=== PATIENT | female | born 1950 | race Caucasian/White ===

== ENCOUNTER 2018-08-22 08:36 | Inpatient (IN) | payer MEDICARE ==
[~2018-08-22] VITALS: Ht 170.2 cm; Wt 61.2 kg
--- NOTE | ~2018-08-22 | HP ---
PATIENT: NIKIA FLANNERY MEDICAL RECORD: [id number] ACCOUNT: [id number] LOCATION:D.MS [place] : 48 ADMISSION DATE: 08/23/18 PCP: JERMAINE BEDOLLA MD HISTORY AND PHYSICAL EXAMINATION HISTORY OF PRESENT ILLNESS: The patient took a Cologuard test, which was positive. She was found to have 2 polyps, one was a flat polyp across from the ileocecal valve and the other one was on the ileocecal valve. 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 She is here for colonoscopy and polypectomy, perhaps utilizing the argon plasma field sales manager or endoscopic mucosal resection. SOCIAL HISTORY: Nonsmoker. HOME MEDICATIONS: None. ALLERGIES: CODEINE, WHICH CAUSES NAUSEA AND VOMITING. PAST MEDICAL AND SURGICAL HISTORY: Colon polyps. History D&C. History of colonoscopies. PHYSICAL EXAMINATION: GENERAL: The patient does not appear acutely ill. She does not appear chronically ill. VITAL SIGNS: Reviewed. EARS: External ears appear normal. EYES: Extraocular movements are intact. NECK: Trachea is midline. CHEST: No intercostal retractions. PULMONARY: Nonlabored. IMPRESSION: History of two colon polyps, both in the right colon. PLAN: Polypectomies as described above. TRANSINT:[id number] Voice Confirmation ID: [id number] DOCUMENT ID: [id number] JERMAINE BEDOLLA MD CC: DAYTON MACK and PATITO LEMUS DO [id number] DICTATION DATE: 08/22/18 1214 TICKER INSTALLER: 08/22/18 1257 ADM IN [facility] [address] [place] [address]
[2018-08-22 09:15] LABS: HEMATOCRIT 40.5 % (36.0-48.0); HEMOGLOBIN 13.2 g/dL (12-16); MCH 29.9 pg (26.0-34.0); MCHC 32.6 g/dL (31.0-37.0); MCV 91.8 fL (80.0-100.0); MEAN PLATELET VOLUME 9.8 fL (7.4-10.4); RBC 4.41 10x6/uL (4.00-5.40); RDW 13.4 % (11.5-14.5); WBC 4.6 10x3/uL (4.8-10.8)
[2018-08-22 09:26] VITALS: BMI 21.9
--- NOTE | 2018-08-22 13:23 | NUR ---
X RAY AT BEDSIDE AT THIS TIME.
--- NOTE | 2018-08-22 13:55 | NUR ---
IV REMOVED AND POST OP INSTRUCTIONS GIVEN. RESULTS OF XRAY IN AND NO FREE AIR. PT ATE SMALL AMT. TRYING TO PASS GAS
--- NOTE | 2018-08-22 16:09 | NUR ---
1345 XRAY DONE AND RESULTS NOTED. PT NOTED WITH A TRAY AT BEDSIDE, SMALL AMT TOLERATED. VS STABLE. PT UNABLE TO RELEASE GAS. ON LEFT SIDE WITH KNEES UP TO CHEST. NO NAUSEA.
--- NOTE | 2018-08-22 16:10 | NUR ---
1430 CONTINUED DOING WELL, IV REMOVED AND INSTRUCTIONS GIVEN.
--- NOTE | 2018-08-22 16:11 | NUR ---
1500 PT HAVING PAIN ACCROSS LOWER ABDOMEN. ENCOURAGED MOVING SIDE TO SIDE. SOME NAUSEA DR BEDOLLA IN GI AND NOTIFIED. ORDERS GIVEN FOR GAS X AND PO ZOFRAN. 1530 DR BEDOLLA CALLED PT CONTINUES WITH NAUSEA AND PAIN MODERATE AMT. WAITING FOR RETURN CALL. 1600 DR BEDOLLA CALLED ABOUT PAIN IN ABD AND NAUSEA. ORDERS GIVEN FOR PO MEDS
--- NOTE | 2018-08-22 16:30 | NUR ---
1615 MEDICATED PER MD ORDERS. PT AWAKE AND ABLE TO DRINK FLUIDS. AT BEDSIDE. ABDOMEN SOFT NO PASSING OF GAS.
--- NOTE | 2018-08-22 17:17 | NUR ---
PT TALKING QUIETLY AND SOFTLY BUT STATED SHE IS IN SO MUCH PAIN IT IS HARD TO BREATH. TEMP 98.8 ABDOMEN SOFT BUT TENDER TO PALPATE.
--- NOTE | 2018-08-22 17:24 | NUR ---
PT STATED SHE PASSED GAS TWICE A LITTLE AROUND 1430 AND NON SINCE.
--- NOTE | 2018-08-22 17:42 | NUR ---
DR BEDOLLA CALLED ABOUT PTS PAIN AND NAUSEA. PAIN A 7 OUT OF 10 ACROSS LOWER PART OF ABDOMEN. PAIN SO GREAT PT STATED IT WAS HARD TO BREATH. PT CALM AT BEDSIDE, UNABLE TO PASS GAS. NAUSEA EASING SOME. ORDERS GIVEN AND NOTED
--- NOTE | 2018-08-22 18:37 | NUR ---
IV RESTARTED IN RIGHT FORARM. PATENT, DRESSING APPLIED. PT DRINKING CLEAR LIQUIDS. SMALL AMT. VS STABLE REPORT GIVEN TO NURSE FOR 2202 RICARDA NAYLOR
[2018-08-23] VITALS (10 sets, daily range): BP systolic 130–179; BP diastolic 53–73; Ht 170.2 cm; Wt 61.2 kg
--- NOTE | 2018-08-23 07:40 | NUR ---
PT LYING IN BED WITH EYES OPEN. NO ACUTE DISTRESS NOTED. REPORTS ABDOMINAL PAIN AT THIS TIME 07/30. IV TO RIGHT FOREARM WITH NS @ 125ML/HR INFUSING VIA PUMP, DILAUDID LABOR RELATIONS TEACHER INTACT AND UTILIZING. DENIES FURTHER NEEDS AT THIS TIME. CL WITHIN REACH. ENCOURAGED TO CALL WITH NEEDS. CONTINUE POC
--- NOTE | 2018-08-23 08:49 | NUR ---
SPOUSE TAKING HOME SILVER COLORED EARRINGS WITH CLEAR STONES AND SILVER COLORED RING WITH CLEAR STONES.
--- NOTE | 2018-08-23 11:10 | NUR ---
PT ADMINISTERED PRE-OP MEDICATIONS AND TAKEN TO PRE-OP FOR PROCEDURE VIA BED. NO ACUTE DISTRESS NOTED AT THIS TIME.
[2018-08-23 11:16] LABS: BASOPHILS 0 % (0-2); EOSINOPHILS 0.1 % (0-7); HEMATOCRIT 36.4 % (36.0-48.0); HEMOGLOBIN 11.8 g/dL (12-16); IMMATURE GRANULOCYTES 0.1 % (0-5); LYMPHOCYTES 20.2 % (15-50); MCH 29.5 pg (26.0-34.0); MCHC 32.4 g/dL (31.0-37.0); MEAN PLATELET VOLUME 9.3 fL (7.4-10.4); MONOCYTES 6.5 % (2-11); NEUTROPHILS 73.1 % (40-80); RDW 13.4 % (11.5-14.5)
[2018-08-23 11:26] LABS: ANION GAP 10.4 mmol/L (8-16); CALCIUM 8.5 mg/dL (8.5-10.1); CARBON DIOXIDE 26.9 mmol/L (21.0-32.0); POTASSIUM - SERUM 3.3 mmol/L (3.5-5.1)
[2018-08-23 11:34] LABS: PLATELET COUNT 130 10x3/uL (130-400)
--- NOTE | 2018-08-23 17:31 | OP ---
PATIENT NAME: NIKIA FLANNERY MEDICAL RECORD: [id number] :48 LOCATION:D.MS Terrell2203 ADMISSION DATE:08/23/18 SURGEON: JERMAINE BEDOLLA MD DATE OF OPERATION: 08/22/2018 PREOPERATIVE DIAGNOSIS: Flat polyp across from the ileocecal valve, 2.5 cm. POSTOPERATIVE DIAGNOSES: Flat polyp across from the ileocecal valve 2.5 cm. PROCEDURES: 1. Total colonoscopy to cecum. 2. Polypectomy utilizing endoscopic mucosal resection. 3. Submucosal epinephrine injection. 4. Argon plasma coagulation therapy to the polypoid base. 5. Placement of 3 endoscopic clips for hemostasis. SURGEON: Jermaine Bedolla MD HOSPITALITY ASSOCIATE: None. BLOOD LOSS: Minimal. ANESTHESIA: IV sedation. COMPLICATIONS: None. The risks, possible complications and alternatives to the procedure were explained to the patient. She elects to proceed. OPERATIVE COURSE: The patient was conveyed to the endoscopy suite electively on 08/22/2018. IV sedation was induced by the anesthesia staff. The patient was placed in the [place] position. A digital rectal examination was performed. A colonoscope was inserted through the anus. It was easily advanced to the cecum. The prep was adequate. The polyp across from the ileocecal valve was easily identifiable. I advanced a sclerotherapy needle. A submucosal injection of epinephrine was performed and there was a good lift to the polyp. I then advanced a sclerotherapy needle again and injected an entire vial of Eleview into the submucosal space allowing the polyp to lift up. Utilizing the endoscopic snare, I performed a piecemeal snare polypectomy of the polyp. This portion of the polyp were then sucked up into the polyp trap. There was a small amount of the residual polypoid tissue, which was ablated utilizing the argon plasma unclaimed property manager with the right colon setting in the forced mode. There was still a small amount of bleeding and this was controlled with a row of 3 endoscopic clips. Hemostasis was assured and the endoscope was then withdrawn under direct vision utilizing narrow band imaging. A retroflexed view was obtained in the rectum. I then unretroflexed the scope and removed it under direct vision. I plan to see the patient in my office in 2-3 weeks. I will plan for the patient's next colonoscopy to take place in 1 year. OPERATIVE REPORT [id number] NIKIA FLANNERY TRANSINT:[id number] Voice Confirmation ID: [id number] DOCUMENT ID: [id number] JERMAINE BEDOLLA MD at 1731 CC: DAYTON MACK and PATITO LEMUS DO [id number] DICTATION DATE: 08/22/18 1258 RAILROAD DISPATCHER: 08/22/18 1342 ADM IN [facility] [address] [place] [address]
[2018-08-24 01:32] VITALS: BP 138/80
--- NOTE | 2018-08-24 04:39 | NUR ---
REC'D AT [facility] OF SHIFT IN BED PARTIALLY ASLEEP.ABDOMINAL DRSG DRY AND INTACT.WITH BELKYS DRAIN AND STEVENSON CATH INTACT DRAINING STRAW YELLOW URINE
[2018-08-24 05:18] VITALS: BP 144/57
--- NOTE | 2018-08-24 05:28 | NUR ---
I AGREE WITH LOGISTICS TECH ASSESSMENT.
[2018-08-24 07:13] LABS: BASOPHILS 0 % (0-2); EOSINOPHILS 0 % (0-7); HEMATOCRIT 32.9 % (36.0-48.0); HEMOGLOBIN 10.7 g/dL (12-16); IMMATURE GRANULOCYTES 0.4 % (0-5); LYMPHOCYTES 10.6 % (15-50); MCH 29.3 pg (26.0-34.0); MCHC 32.5 g/dL (31.0-37.0); MCV 90.1 fL (80.0-100.0); MEAN PLATELET VOLUME 10.1 fL (7.4-10.4); MONOCYTES 6.3 % (2-11); NEUTROPHILS 82.7 % (40-80); PLATELET COUNT 128 10x3/uL (130-400); RBC 3.65 10x6/uL (4.00-5.40); RDW 13.4 % (11.5-14.5); WBC 7.7 10x3/uL (4.8-10.8)
--- NOTE | 2018-08-24 07:25 | NUR ---
PT RESTING IN BED WITH FAMILY AT BEDSIDE. RESP EVEN AND UNLABORED. REPORTS PAIN 4/10 AT THIS TIME, UTILIZING DILAUDID ENTRY LEVEL FINANCIAL ANALYST. IV TO RIGHT FOREARM WITH NS @ 100ML/HR INFUSING VIA PUMP. SITE WITHOUT REDNESS OR EDEMA. LAP SITES TO ABDOMEN, SITES WITHOUT DRAINAGE, NO REDNESS. BELKYS DRAIN INTACT TO MID LOWER ABDOMEN DRAINING SEROUS DRAINAGE. DENIES FURTHER NEEDS AT THIS TIME. CL WITHIN REACH. ENCOURAGED TO CALL WITH NEEDS. CONTINUE POC
[2018-08-24 07:42] LABS: ALBUMIN 2.4 g/dL (3.4-5.0); ALKALINE PHOSPHATASE 37 U/L (46-116); ALT (SGPT) 15 U/L (10-68); CALC OSMOLALITY 277 mosm/kg (275-300); CALCIUM 8.1 mg/dL (8.5-10.1); CARBON DIOXIDE 24.3 mmol/L (21.0-32.0); CHLORIDE - SERUM 106 mmol/L (98-107); GLUCOSE 115 mg/dL (74-106); MAGNESIUM - SERUM 1.7 mg/dL (1.8-2.4); PHOSPHOROUS 2.7 mg/dL (2.5-4.9); POTASSIUM - SERUM 3.6 mmol/L (3.5-5.1); PROTEIN - SERUM 5.7 g/dL (6.4-8.2); SODIUM 139 mmol/L (136-145); TROPONIN-I < 0.017 ng/mL (0.000-0.060); UREA NITROGEN 9 mg/dL (7-18); eGFR NON AFRICAN AMERICAN 88 mL/min (90-120)
[2018-08-24 07:45] LABS: CREATININE - SERUM 0.7 mg/dL (0.6-1.3)
[2018-08-24 08:45] VITALS: BP 138/62
--- NOTE | 2018-08-24 09:10 | CN ---
PATIENT NAME:TARA LUKE MEDICAL RECORD: [id number] : 48 LOCATION:D.MS Terrell2202 ADMIT DATE: 08/23/18 ACCOUNT: [id number] CONSULTING PHYSICIAN: DAYTON MACK DO REFERRING PHYSICIAN: JERMAINE BEDOLLA MD DATE OF CONSULTATION: 08/23/2018 FAMILY PRACTICE CONSULT HISTORY: Ms. Tara Luke is a 68-year-old white female who was seen in consultation for medical management after undergoing a HALS colectomy. She actually underwent a colonoscopy on 08/22/2018 with argon laser coagulation per Dr. Bedolla. She developed pain afterwards and noted to have free air. She subsequently underwent a colectomy earlier today. She is seen postop. Her pain seems controlled and she appears to be doing okay; a little nausea, but not bad. PAST MEDICAL HISTORY: Significant for some GERD. Really no other problems. PAST SURGICAL HISTORY: Previous surgeries include previous colonoscopies. ALLERGIES: CODEINE, WHICH CAUSES VOMITING AND DIARRHEA. HOME MEDICATIONS: Vitamin D and omeprazole 20 mg a day. FAMILY HISTORY: Significant for hypertension, diabetes, and colon cancer. SOCIAL HISTORY: The patient is . She does not smoke or drink. She lives in [place]. REVIEW OF SYSTEMS: At this time, no headache, no chest pain, and no shortness of breath. She does have some postoperative abdominal pain. Minimal nausea. PHYSICAL EXAMINATION: HEENT: Head is normocephalic. Sclerae nonicteric. Mucous membranes moist. NECK: Soft and supple. HEART: Regular. LUNGS: Clear. ABDOMEN: Soft. There are no bowel sounds at this time. She has got a J-P drain in the lower abdomen. Incisions look good. EXTREMITIES: Lower extremities reveal no edema. IMPRESSION: Status post colectomy after colonoscopy, complicated by perforation. PLAN: Continue to monitor H&H postoperatively and electrolytes. I discussed with Dr. Bedolla. Prognosis is good. TRANSINT:[id number] Voice Confirmation ID: [id number] DOCUMENT ID: [id number] CONSULT REPORT [id number] TARA LUKE DAYTON MACK DO at 0910 CC: [id number] DICTATION DATE: 08/23/181919 LACE PAPER MACHINE OPERATOR: 08/23/182005 ADM IN [facility] [address] [place] [address]
[2018-08-24 14:41] VITALS: BP 150/60
[2018-08-24 18:28] VITALS: BP 123/52
--- NOTE | 2018-08-24 20:00 | NUR ---
A&O X 4, AT BEDSIDE. 3 SM LAP SITES AND ONE LARGE LAP SITE ON ABDOMEN, C/D/I. BELKYS DRAIN TO LOWER ABDOMEN. PT REPORTS VOIDING W/O DIFFICULTY, ONLY C/O MILD PAIN/DISCOMFORT WHEN GETTING IN AND UP OUT OF BED. REPORTS NO PAIN AT THIS TIME AND STATES SERVICE MECHANIC ADEQUATELY CONTROLS PAIN WHILE MOVING AROUND, BUT ONLY HAS HAD TO USE IT A FEW TIMES. DENIES NEEDS AT THIS TIME, WILL MONITOR CLOSELY.
[2018-08-24 21:00] VITALS: BP 145/61
[2018-08-25 01:06] VITALS: BP 154/64
--- NOTE | 2018-08-25 03:48 | NUR ---
I CONCUR WITH AMBULANCE DISPATCHER ASSESSMENT.
[2018-08-25 04:36] VITALS: BP 128/55
[2018-08-25 06:17] LABS: BASOPHILS 0 % (0-2); EOSINOPHILS 1.3 % (0-7); HEMATOCRIT 30.7 % (36.0-48.0); HEMOGLOBIN 9.9 g/dL (12-16); IMMATURE GRANULOCYTES 0.2 % (0-5); LYMPHOCYTES 21.9 % (15-50); MCH 29.2 pg (26.0-34.0); MCHC 32.2 g/dL (31.0-37.0); MCV 90.6 fL (80.0-100.0); MEAN PLATELET VOLUME 9.9 fL (7.4-10.4); MONOCYTES 7.1 % (2-11); NEUTROPHILS 69.5 % (40-80); PLATELET COUNT 120 10x3/uL (130-400); RBC 3.39 10x6/uL (4.00-5.40); RDW 13.5 % (11.5-14.5); WBC 6.1 10x3/uL (4.8-10.8)
[2018-08-25 06:36] LABS: ALBUMIN 2.1 g/dL (3.4-5.0); ALKALINE PHOSPHATASE 33 U/L (46-116); ALT (SGPT) 14 U/L (10-68); BILIRUBIN - TOTAL 0.67 mg/dL (0.2-1.3); CALC OSMOLALITY 276 mosm/kg (275-300); CALCIUM 7.5 mg/dL (8.5-10.1); CARBON DIOXIDE 28.4 mmol/L (21.0-32.0); CHLORIDE - SERUM 105 mmol/L (98-107); CREATININE - SERUM 0.6 mg/dL (0.6-1.3); GLUCOSE 93 mg/dL (74-106); MAGNESIUM - SERUM 1.7 mg/dL (1.8-2.4); POTASSIUM - SERUM 3.4 mmol/L (3.5-5.1); PROTEIN - SERUM 5.4 g/dL (6.4-8.2); SODIUM 139 mmol/L (136-145); UREA NITROGEN 10 mg/dL (7-18); eGFR NON AFRICAN AMERICAN > 90 mL/min (90-120)
[2018-08-25 09:15] VITALS: BP 136/61
--- NOTE | 2018-08-25 12:50 | NUR ---
NUTRITION F/U CHART REVIEWED, PT VISIT. DIET ADVANCED TO REG. NOTE POSSIBLE DC TODAY. RD FOLLOWING
[2018-08-25 13:11] VITALS: BP 143/60
[2018-08-25 13:17] VITALS: BP 119/66
[2018-08-25] MEDS ORDERED: CIPRO500 MG PO (14:10)
[2018-08-25] MEDS ORDERED: DILAUDID2 MG PO (14:10)
[2018-08-25] MEDS ORDERED: FLAGYL500 MG PO (14:11)
--- NOTE | 2018-08-25 15:06 | NUR ---
IV CATH DC'ED WITH TIP INTACT. NO REDNESS, SWELLING, OR SIGNS OF INFECTION. WCTM
--- NOTE | 2018-08-25 17:18 | NUR ---
DISCHARGE INSTRUCTIONS GIVEN. PATIENT AND FAMILY VERABLIZED UNDERSTANDING
== END 2018-08-25 17:58 | disposition home or self-care (01) | DRG 329 ==
LOC: D.OPS 08:36 → OBSVTIME 18:55 → D.MS 18:55 → D.SDCHOLD 18:55 → D.MS 19:29
PROVIDERS: Anesthesiology; Family Medicine; ADMIT Surgery; ATTEND Surgery
PROC: 0D5C8ZZ Destruction of Ileocecal Valve, Via Natural or Artificial Opening Endoscopic (ICD-10-PCS; 2018-08-22)
PROC: 0DTF0ZZ Resection of Right Large Intestine, Open Approach (ICD-10-PCS; principal; 2018-08-23 12:00)
DX: K91.89 Other postprocedural complications and disorders of digestive system (principal); K65.9 Peritonitis, unspecified; K63.5 Polyp of colon; K21.9 Gastro-esophageal reflux disease without esophagitis

== ENCOUNTER 2018-08-31 16:08 | Inpatient (IN) | payer MEDICARE ==
[~2018-08-31] VITALS: Ht 170.2 cm; Wt 59.0 kg
[~2018-08-31 16:08] MED LIST: CIPRO500 MG PO; DILAUDID2 MG PO; FLAGYL500 MG PO
[2018-08-31 16:59] LABS: BASOPHILS 0.2 % (0-2); EOSINOPHILS 1.4 % (0-7); HEMATOCRIT 38.8 % (36.0-48.0); HEMOGLOBIN 12.6 g/dL (12-16); IMMATURE GRANULOCYTES 0.3 % (0-5); LYMPHOCYTES 24.8 % (15-50); MCH 29.3 pg (26.0-34.0); MCHC 32.5 g/dL (31.0-37.0); MCV 90.2 fL (80.0-100.0); MEAN PLATELET VOLUME 9.4 fL (7.4-10.4); MONOCYTES 7.8 % (2-11); NEUTROPHILS 65.5 % (40-80); RDW 13.3 % (11.5-14.5); WBC 6.7 10x3/uL (4.8-10.8)
[2018-08-31 17:10] LABS: PLATELET COUNT 227 10x3/uL (130-400)
[2018-08-31 17:15] LABS: ALBUMIN 3.2 g/dL (3.4-5.0); ALKALINE PHOSPHATASE 53 U/L (46-116); ALT (SGPT) 40 U/L (10-68); BILIRUBIN - TOTAL 0.38 mg/dL (0.2-1.3); CALC OSMOLALITY 280 mosm/kg (275-300); CALCIUM 9.1 mg/dL (8.5-10.1); CARBON DIOXIDE 29.7 mmol/L (21.0-32.0); CHLORIDE - SERUM 104 mmol/L (98-107); CREATININE - SERUM 0.8 mg/dL (0.6-1.3); GLUCOSE 115 mg/dL (74-106); POTASSIUM - SERUM 3.6 mmol/L (3.5-5.1); SODIUM 141 mmol/L (136-145); UREA NITROGEN 9 mg/dL (7-18); eGFR NON AFRICAN AMERICAN 75 mL/min (90-120)
[2018-08-31 17:17] LABS: APTT 29.4 SECONDS (22.8-39.4); INR 1.22 (0.85-1.17); PROTIME 14.9 SECONDS (11.6-15.0)
[2018-08-31 17:26] LABS: CKMB 0.6 U/L (0.0-3.6); CREATINE KINASE 35 UL (21-215)
[2018-08-31 17:28] LABS: TROPONIN-I < 0.017 ng/mL (0.000-0.060)
[2018-08-31 19:03] LABS: APPEARANCE CLEAR (CLEAR); COLOR STRAW (YELLOW)
[2018-08-31 19:04] LABS: BILIRUBIN NEGATIVE (NEGATIVE); GLUCOSE NEGATIVE (NEGATIVE); KETONE NEGATIVE (NEGATIVE); NITRITE NEGATIVE (NEGATIVE); PROTEIN NEGATIVE (NEGATIVE); UROBILINOGEN NORMAL (NORMAL)
[2018-08-31 19:08] LABS: BACTERIA FEW /hpf (NONE SEEN); EPITHELIAL CELLS 0-5 /hpf (0-5); RED CELLS - URINE 0-5 /hpf (0-5); WHITE CELLS - URINE 0-5 /hpf (0-5)
[2018-08-31 20:50] VITALS: BP 159/71
[2018-08-31 23:49] VITALS: BP 159/71; BMI 20.4
[2018-09-01 01:09] VITALS: BP 143/56
[2018-09-01 06:10] VITALS: BP 162/64
[2018-09-01 06:58] LABS: BASOPHILS 0.2 % (0-2); EOSINOPHILS 1.3 % (0-7); HEMATOCRIT 32.8 % (36.0-48.0); HEMOGLOBIN 10.6 g/dL (12-16); LYMPHOCYTES 35.5 % (15-50); MCHC 32.3 g/dL (31.0-37.0); MCV 89.9 fL (80.0-100.0); MEAN PLATELET VOLUME 9.3 fL (7.4-10.4); MONOCYTES 7.3 % (2-11); NEUTROPHILS 54.7 % (40-80); PLATELET COUNT 221 10x3/uL (130-400); RBC 3.65 10x6/uL (4.00-5.40); RDW 13.3 % (11.5-14.5); WBC 6.3 10x3/uL (4.8-10.8)
[2018-09-01 07:07] LABS: ANION GAP 12.4 mmol/L (8-16); CALCIUM 8.6 mg/dL (8.5-10.1); CARBON DIOXIDE 27.3 mmol/L (21.0-32.0); CREATININE - SERUM 0.9 mg/dL (0.6-1.3); POTASSIUM - SERUM 3.7 mmol/L (3.5-5.1)
[2018-09-01 08:00] VITALS: BP 154/64
[2018-09-01 09:42] VITALS: BMI 20.3
[2018-09-01 12:00] VITALS: BP 138/61
[2018-09-01 12:45] VITALS: Ht 170.2 cm; Wt 59.0 kg
[2018-09-01 13:41] LABS: HEMATOCRIT 30.4 % (36.0-48.0); HEMOGLOBIN 10.3 g/dL (12-16)
[2018-09-01 16:00] VITALS: BP 137/46; BP 151/64; BP 151/80
[2018-09-01 21:23] VITALS: BP 150/72
[2018-09-01 22:21] LABS: HEMATOCRIT 28.2 % (36.0-48.0); HEMOGLOBIN 8.9 g/dL (12-16)
[2018-09-02 00:32] VITALS: BP 135/61
[2018-09-02 05:54] VITALS: BP 153/65
[2018-09-02 06:01] LABS: BASOPHILS 0.2 % (0-2); HEMATOCRIT 25.2 % (36.0-48.0); HEMOGLOBIN 8.1 g/dL (12-16); IMMATURE GRANULOCYTES 0.2 % (0-5); LYMPHOCYTES 45.7 % (15-50); MCH 29.2 pg (26.0-34.0); MCHC 32.1 g/dL (31.0-37.0); MEAN PLATELET VOLUME 9.2 fL (7.4-10.4); MONOCYTES 6.6 % (2-11); NEUTROPHILS 45.3 % (40-80); PLATELET COUNT 204 10x3/uL (130-400); RBC 2.77 10x6/uL (4.00-5.40); RDW 13.5 % (11.5-14.5); WBC 5.5 10x3/uL (4.8-10.8)
[2018-09-02 06:09] LABS: CALC OSMOLALITY 283 mosm/kg (275-300); CALCIUM 7.8 mg/dL (8.5-10.1); CARBON DIOXIDE 30.5 mmol/L (21.0-32.0); CHLORIDE - SERUM 109 mmol/L (98-107); CREATININE - SERUM 0.7 mg/dL (0.6-1.3); GLUCOSE 105 mg/dL (74-106); POTASSIUM - SERUM 3.7 mmol/L (3.5-5.1); SODIUM 144 mmol/L (136-145); UREA NITROGEN 5 mg/dL (7-18); eGFR NON AFRICAN AMERICAN 88 mL/min (90-120)
[2018-09-02 08:36] VITALS: BP 133/53
[2018-09-02 11:40] VITALS: BP 124/41
[2018-09-02 16:00] VITALS: BP 114/35
[2018-09-02 20:00] VITALS: BP 128/54
[2018-09-03] VITALS: BP 131/55
[2018-09-03 06:20] LABS: CALC OSMOLALITY 283 mosm/kg (275-300); CARBON DIOXIDE 28.3 mmol/L (21.0-32.0); CHLORIDE - SERUM 109 mmol/L (98-107); CREATININE - SERUM 0.7 mg/dL (0.6-1.3); GLUCOSE 100 mg/dL (74-106); POTASSIUM - SERUM 3.5 mmol/L (3.5-5.1); SODIUM 144 mmol/L (136-145); UREA NITROGEN 4 mg/dL (7-18); eGFR NON AFRICAN AMERICAN 88 mL/min (90-120)
[2018-09-03 06:53] VITALS: BP 123/57
[2018-09-03 07:24] VITALS: BP 148/58
[2018-09-03 07:53] LABS: BASOPHILS 0.2 % (0-2); EOSINOPHILS 2.2 % (0-7); HEMATOCRIT 28.6 % (36.0-48.0); HEMOGLOBIN 9.4 g/dL (12-16); IMMATURE GRANULOCYTES 0.2 % (0-5); LYMPHOCYTES 32.7 % (15-50); MCH 28.6 pg (26.0-34.0); MCHC 32.9 g/dL (31.0-37.0); MEAN PLATELET VOLUME 8.9 fL (7.4-10.4); MONOCYTES 7.3 % (2-11); NEUTROPHILS 57.4 % (40-80); PLATELET COUNT 190 10x3/uL (130-400); RBC 3.29 10x6/uL (4.00-5.40); RDW 14.4 % (11.5-14.5)
[2018-09-03 07:57] LABS: MCV 86.9 fL (80.0-100.0)
[2018-09-03 11:55] VITALS: BP 131/56
[2018-09-03 16:30] VITALS: BP 142/67
[2018-09-03 20:08] VITALS: BP 128/59
[2018-09-03 20:17] LABS: BASOPHILS 0.1 % (0-2); EOSINOPHILS 1.2 % (0-7); HEMATOCRIT 25.8 % (36.0-48.0); HEMOGLOBIN 8.6 g/dL (12-16); IMMATURE GRANULOCYTES 0.3 % (0-5); LYMPHOCYTES 20.7 % (15-50); MCH 29.2 pg (26.0-34.0); MCHC 33.3 g/dL (31.0-37.0); MCV 87.5 fL (80.0-100.0); MEAN PLATELET VOLUME 9.3 fL (7.4-10.4); MONOCYTES 5.4 % (2-11); NEUTROPHILS 72.3 % (40-80); PLATELET COUNT 217 10x3/uL (130-400); RBC 2.95 10x6/uL (4.00-5.40); RDW 14.6 % (11.5-14.5)
[2018-09-03 20:20] LABS: WBC 7.6 10x3/uL (4.8-10.8)
[2018-09-03 20:26] LABS: APTT 27.2 SECONDS (22.8-39.4); INR 1.28 (0.85-1.17); PROTIME 15.4 SECONDS (11.6-15.0)
[2018-09-04 00:30] VITALS: BP 128/60
[2018-09-04 05:25] LABS: BASOPHILS 0.2 % (0-2); EOSINOPHILS 2.5 % (0-7); HEMATOCRIT 25.2 % (36.0-48.0); HEMOGLOBIN 8.4 g/dL (12-16); IMMATURE GRANULOCYTES 0.2 % (0-5); LYMPHOCYTES 36.3 % (15-50); MCH 29.4 pg (26.0-34.0); MCHC 33.3 g/dL (31.0-37.0); MCV 88.1 fL (80.0-100.0); MEAN PLATELET VOLUME 9.1 fL (7.4-10.4); NEUTROPHILS 53.8 % (40-80); PLATELET COUNT 201 10x3/uL (130-400); RBC 2.86 10x6/uL (4.00-5.40); RDW 14.6 % (11.5-14.5); WBC 5.9 10x3/uL (4.8-10.8)
[2018-09-04 05:34] LABS: CALC OSMOLALITY 290 mosm/kg (275-300); CALCIUM 7.9 mg/dL (8.5-10.1); CHLORIDE - SERUM 110 mmol/L (98-107); CREATININE - SERUM 0.7 mg/dL (0.6-1.3); GLUCOSE 119 mg/dL (74-106); POTASSIUM - SERUM 3.5 mmol/L (3.5-5.1); SODIUM 147 mmol/L (136-145); eGFR NON AFRICAN AMERICAN 88 mL/min (90-120)
[2018-09-04 05:39] LABS: UREA NITROGEN 6 mg/dL (7-18)
[2018-09-04 05:45] VITALS: BP 131/42
[2018-09-04 08:00] VITALS: BP 127/54
[2018-09-04 12:00] VITALS: BP 120/47
--- NOTE | 2018-09-04 15:07 | MORECARE ---
CASE MANAGEMENT DISCHARGE SUMMARY PATIENT: NIKIA FLANNERY UNIT: [id number] ADM DATE: 09/01/18 AGE: 68 : 49 SEX: F ROOM/BED: D.1210 AUTHOR: DIRK DE PHYSICIAN: REFERRING PHYSICIAN: JERMAINE BEDOLLA MD DATE OF SERVICE: 09/04/18 Discharge Plan Patient Name: NIKIA FLANNERY Facility: [facility]:[place] : 1950 Planned Disposition: Home Anticipated Discharge Date: Discharge Date: Expected LOS: Initial Reviewer: [email or web address] Initial Review Date: 08/31/2018 Generated: 09/04/18 4:07 pm Patient Name: NIKIA FLANNERY Page 17315 at 1507 All edits/amendments must be made on the electronic document DICTATION DATE: 09/04/181506 GAS PUMP ATTENDANT: LUIS MANUEL 09/04/18 1507 RPT#: [id number] DC DATE: STATUS: ADM IN [facility] [address] [place] [address] END OF REPORT
--- NOTE | 2018-09-04 15:17 | MORECARE ---
CASE MANAGEMENT DISCHARGE SUMMARY PATIENT: NIKIA FLANNERY UNIT: [id number] ADM DATE: 09/01/18 AGE: 68 : 49 SEX: F ROOM/BED: D.1210 AUTHOR: DIRK DE PHYSICIAN: REFERRING PHYSICIAN: JERMAINE BEDOLLA MD DATE OF SERVICE: 09/04/18 Discharge Plan Patient Name: NKIIA FLANNERY [facility] : 1950 Planned Disposition: Home Anticipated Discharge Date: Discharge Date: Expected LOS: Initial Reviewer: [email or web address] Initial Review Date: 08/31/2018 Generated: 09/04/18 4:17 pm DCPIA - Discharge Planning Initial Assessment Updated by [email or web address]: Chery Escobar on 09/04/18 3:11 pm * Is the patient Alert and Oriented? Yes * How many steps to enter\exit or inside your home? 10/27 / rail * PCP DR Ana Burgess * Pharmacy [facility] * Preadmission Environment Home with Family * ADLs Independent * Equipment None * Other Equipment Denies any DME * List name and contact numbers for known caregivers / representatives who currently or will assist patient after discharge: Osmel Flannery- spouse- [phone] * Verbal permission to speak to the caregivers and representatives has been obtained from the patient. Yes * Community resources currently utilized None * Please name any agencies selected above. N/A * Additional services required to return to the preadmission environment? No * Can the patient safely return to the preadmission environment? Yes * Has this patient been hospitalized within the prior 30 days at any hospital? Yes Last DP export: 09/04/18 2:07 p Patient Name: NIKIA FLANNERY Page 09889 at 1517 All edits/amendments must be made on the electronic document DICTATION DATE: 09/04/181516 OPTICAL DESIGN ENGINEER: LUIS MANUEL 09/04/181516 RPT#: [id number] DC DATE: STATUS: ADM IN [facility] [address] [place] [address] END OF REPORT
--- NOTE | 2018-09-04 15:54 | MORECARE ---
CASE MANAGEMENT DISCHARGE SUMMARY PATIENT: NIKIA FLANNERY UNIT: [id number] ADM DATE: 09/01/18 AGE: 68 : 49 SEX: F ROOM/BED: D.1210 AUTHOR: SANTINO,DOC PHYSICIAN: REFERRING PHYSICIAN: JERMAINE BEDOLLA MD DATE OF SERVICE: 09/04/18 Discharge Plan Patient Name: NIKIA FLANNERY Facility: [facility]:[place] : 1950 Planned Disposition: Home Anticipated Discharge Date: Discharge Date: Expected LOS: Initial Reviewer: [email or web address] Initial Review Date: 08/31/2018 Generated: 09/04/18 4:53 pm Comments DCP- Discharge Planning Updated by [email or web address]: Chery Escobar on 09/04/18 2:[address] Surgeon's plan as per the previous note. CM met with the patient and her spouse, sOmel, at the bedside. The patient gave permission for CM to initiate the assessment w/ her and friend at the bedside. CM explained case management and our roles. She plans to return to home. The and patient strongly decline consideration for home health or any services. The states he will take care of her. CM explained H/H SN services. They both still declined. The patient was readmitted within 6 days of her previous discharge. CM feels h/h maybe appropriate for better outcome. CM advised the patient and spouse of availability if they change their minds. PCP- DR Tidwell [facility] - [facility] in [place], [place] DME- denies any dme. CM will follow. DCPIA - Discharge Planning Initial Assessment Updated by [email or web address]: Chery Escobar on 09/04/18 3:11 pm * Is the patient Alert and Oriented? Yes * How many steps to enter\exit or inside your home? / / rail * PCP DR Tidwell- [place] * [facility] * Preadmission Environment Home with Family * ADLs Independent * Equipment None * Other Equipment Denies any DME * List name and contact numbers for known caregivers / representatives who currently or will assist patient after discharge: Osmel Flannery- spouse- [phone] * Verbal permission to speak to the caregivers and representatives has been obtained from the patient. Yes * Community resources currently utilized None * Please name any agencies selected above. N/A * Additional services required to return to the preadmission environment? No * Can the patient safely return to the preadmission environment? Yes * Has this patient been hospitalized within the prior 30 days at any hospital? Yes Last DP export: 09/04/18 2:17 p Patient Name: NIKIA FLANNERY Page 93698 at 1554 All edits/amendments must be made on the electronic document DICTATION DATE: 09/04/181552 SHOWROOM CONSULTANT: LUIS MANUEL 09/04/181552 RPT#: [id number] DC DATE: STATUS: ADM IN [facility] [address] [place] [address] END OF REPORT
[2018-09-04 16:00] VITALS: BP 137/60
[2018-09-04 21:15] VITALS: BP 140/60
[2018-09-05] VITALS (7 sets, daily range): BP systolic 105–139; BP diastolic 49–63
[2018-09-05 07:21] LABS: BASOPHILS 0.2 % (0-2); EOSINOPHILS 2.3 % (0-7); MCH 29.1 pg (26.0-34.0); MCHC 32.8 g/dL (31.0-37.0); MCV 88.7 fL (80.0-100.0); MEAN PLATELET VOLUME 9.3 fL (7.4-10.4); MONOCYTES 8.5 % (2-11); PLATELET COUNT 194 10x3/uL (130-400); RDW 14.4 % (11.5-14.5); WBC 5.2 10x3/uL (4.8-10.8)
[2018-09-05 07:34] LABS: CALC OSMOLALITY 288 mosm/kg (275-300); CARBON DIOXIDE 30.7 mmol/L (21.0-32.0); CHLORIDE - SERUM 110 mmol/L (98-107); CREATININE - SERUM 0.8 mg/dL (0.6-1.3); GLUCOSE 104 mg/dL (74-106); HEMATOCRIT 31.4 % (36.0-48.0); HEMOGLOBIN 10.3 g/dL (12-16); POTASSIUM - SERUM 3.2 mmol/L (3.5-5.1); RBC 3.54 10x6/uL (4.00-5.40); SODIUM 146 mmol/L (136-145); UREA NITROGEN 6 mg/dL (7-18); eGFR NON AFRICAN AMERICAN 75 mL/min (90-120)
[2018-09-05 11:00] LABS: ALP - ISO (ALP) 46 IU/L (39-117); ALP - ISO (BONE) FRACTION 32 % (14-68); ALP - ISO (LIVER) FRACTION 62 % (18-85); ALP - ISO(INTESTINAL) FRACTION 6 % (0-18)
[2018-09-06] VITALS: BP 115/48
[2018-09-06 04:00] VITALS: BP 143/57; BP 147/59
[2018-09-06 06:45] LABS: BASOPHILS 0 % (0-2); EOSINOPHILS 2.2 % (0-7); HEMATOCRIT 30.2 % (36.0-48.0); HEMOGLOBIN 9.9 g/dL (12-16); IMMATURE GRANULOCYTES 0.2 % (0-5); LYMPHOCYTES 37.8 % (15-50); MCH 29.2 pg (26.0-34.0); MCHC 32.8 g/dL (31.0-37.0); MCV 89.1 fL (80.0-100.0); MEAN PLATELET VOLUME 9.8 fL (7.4-10.4); MONOCYTES 6.8 % (2-11); RBC 3.39 10x6/uL (4.00-5.40); RDW 14.6 % (11.5-14.5)
[2018-09-06 06:49] LABS: PLATELET COUNT 130 10x3/uL (130-400)
[2018-09-06 07:10] LABS: CALC OSMOLALITY 286 mosm/kg (275-300); CALCIUM 7.8 mg/dL (8.5-10.1); CARBON DIOXIDE 29.9 mmol/L (21.0-32.0); CHLORIDE - SERUM 111 mmol/L (98-107); CREATININE - SERUM 0.7 mg/dL (0.6-1.3); GLUCOSE 95 mg/dL (74-106); SODIUM 145 mmol/L (136-145); UREA NITROGEN 6 mg/dL (7-18); eGFR NON AFRICAN AMERICAN 88 mL/min (90-120)
[2018-09-06 07:14] LABS: POTASSIUM - SERUM 3.9 mmol/L (3.5-5.1)
[2018-09-06 09:21] VITALS: BP 102/46
[2018-09-06 11:35] VITALS: BP 114/49
[2018-09-06 15:53] VITALS: BP 132/60
[2018-09-06 20:21] VITALS: BP 122/50
[2018-09-07 00:15] VITALS: BP 128/55
[2018-09-07 04:35] VITALS: BP 126/53
[2018-09-07 06:45] LABS: BASOPHILS 0.2 % (0-2); HEMATOCRIT 31.4 % (36.0-48.0); HEMOGLOBIN 10.2 g/dL (12-16); LYMPHOCYTES 36.1 % (15-50); MCH 29.2 pg (26.0-34.0); MCHC 32.5 g/dL (31.0-37.0); MEAN PLATELET VOLUME 9.3 fL (7.4-10.4); MONOCYTES 8.3 % (2-11); NEUTROPHILS 53.4 % (40-80); PLATELET COUNT 175 10x3/uL (130-400); RBC 3.49 10x6/uL (4.00-5.40); RDW 14.7 % (11.5-14.5); WBC 4.6 10x3/uL (4.8-10.8)
[2018-09-07 07:15] LABS: ALBUMIN 2.2 g/dL (3.4-5.0); ALKALINE PHOSPHATASE 37 U/L (46-116); ALT (SGPT) 19 U/L (10-68); BILIRUBIN - TOTAL 0.31 mg/dL (0.2-1.3); CALC OSMOLALITY 282 mosm/kg (275-300); CALCIUM 7.7 mg/dL (8.5-10.1); CARBON DIOXIDE 29.7 mmol/L (21.0-32.0); CHLORIDE - SERUM 108 mmol/L (98-107); CREATININE - SERUM 0.6 mg/dL (0.6-1.3); GLUCOSE 99 mg/dL (74-106); POTASSIUM - SERUM 3.5 mmol/L (3.5-5.1); PROTEIN - SERUM 4.9 g/dL (6.4-8.2); SODIUM 143 mmol/L (136-145); UREA NITROGEN 7 mg/dL (7-18); eGFR NON AFRICAN AMERICAN > 90 mL/min (90-120)
[2018-09-07 08:11] VITALS: BP 136/83
[2018-09-07 12:09] VITALS: BP 132/58
[2018-09-07] MEDS ORDERED: ULTRAM50 MG PO (13:26)
[2018-09-07 14:00] VITALS: BP 150/68
--- NOTE | 2018-09-07 16:06 | MORECARE ---
CASE MANAGEMENT DISCHARGE SUMMARY PATIENT: NIKIA FLANNERY UNIT: [id number] ADM DATE: 09/01/18 AGE: 68 : 49 SEX: F ROOM/BED: D.1210 AUTHOR: SANTINO,DOC PHYSICIAN: REFERRING PHYSICIAN: JERMAINE BEDOLLA MD DATE OF SERVICE: 09/07/18 Discharge Plan Patient Name: NIKIA FLANNERY Facility: [facility]:[place] : 1950 Planned Disposition: Home Anticipated Discharge Date: Discharge Date: Expected LOS: Initial Reviewer: [email or web address] Initial Review Date: 08/31/2018 Generated: 09/07/18 5:06 pm Comments DCP- Discharge Planning Updated by [email or web address]: Soledad Sheffield on 09/07/18 3:[address] Patient Name: NIKIA FLANNERY Encounter No: [id number] : 1950 Primary Insurance: [employer] MEDICARE ADV Heading Repairer: :Soledad Sheffield UR Note: Discharged 09/07/18 Soledad Sheffield DCP- Discharge Planning Updated by [email or web address]: Chery Escobar on 09/04/18 2:[address] Surgeon's plan as per the previous note. CM met with the patient and her spouse, Osmel, at the bedside. The patient gave permission for CM to initiate the assessment w/ her and friend at the bedside. CM explained case management and our roles. She plans to return to home. The and patient strongly decline consideration for home health or any services. The states he will take care of her. CM explained H/H SN services. They both still declined. The patient was readmitted within 6 days of her previous discharge. CM feels h/h maybe appropriate for better outcome. CM advised the patient and spouse of availability if they change their minds. PCP- DR Tidwell [facility] - [facility] in [place], [place] DME- denies any dme. CM will follow. DCPIA - Discharge Planning Initial Assessment Updated by [email or web address]: Chery Escobar on 09/04/18 3:11 pm * Is the patient Alert and Oriented? Yes * How many steps to enter\exit or inside your home? 6/7 / rail * PCP DR Tidwell- [place] * Pharm[facility] * Preadmission Environment Home with Family * ADLs Independent * Equipment None * Other Equipment Denies any DME * List name and contact numbers for known caregivers / representatives who currently or will assist patient after discharge: Osmel Flannery- spouse- [phone] * Verbal permission to speak to the caregivers and representatives has been obtained from the patient. Yes * Community resources currently utilized None * Please name any agencies selected above. N/A * Additional services required to return to the preadmission environment? No * Can the patient safely return to the preadmission environment? Yes * Has this patient been hospitalized within the prior 30 days at any hospital? Yes Last DP export: 09/04/18 2:53 p Patient Name: NIKIA FLANNERY Page 96624 at 1606 All edits/amendments must be made on the electronic document DICTATION DATE: 09/07/181605 WORD PROCESSING MACHINE OPERATOR: LUIS MANUEL 09/07/181605 RPT#: [id number] DC DATE: STATUS: ADM IN [facility] [address] [place] [address] END OF REPORT
--- NOTE | 2018-09-07 18:12 | MORECARE ---
CASE MANAGEMENT DISCHARGE SUMMARY PATIENT: NIKIA FLANNERY UNIT: [id number] ADM DATE: 09/01/18 AGE: 68 : 49 SEX: F ROOM/BED: D.1210 AUTHOR: SANTINO,DOC PHYSICIAN: REFERRING PHYSICIAN: JERMAINE BEDOLLA MD DATE OF SERVICE: 09/07/18 Discharge Plan Patient Name: NIKIA FLANNERY Facility: [facility]:[place] : 1950 Planned Disposition: Home Anticipated Discharge Date: Discharge Date: Expected LOS: Initial Reviewer: [email or web address] Initial Review Date: 08/31/2018 Generated: 09/07/18 7:12 pm Comments DCP- Discharge Planning Updated by [email or web address]: Clarissa Remy on 09/07/18 5:[address] LATE ENTRY FOR 14:20 Patient Name: NIKIA FLANNERY Encounter No: [id number] : 1950 Primary Insurance: [employer] ADV Anticipated DC Date: Planned Disposition: Home External Planned Provider: : DCP follow-up note: Patient and Spouse in agreement with discharge plan. No changes to plan. CM explained and served DC IMM. Case management will follow and assist as needed. Clarissa Remy DCP- Discharge Planning Updated by [email or web address]: Soledad Sheffield on 09/07/18 3:[address] Patient Name: NIKIA FLANNERY Encounter No: [id number] : 1950 Primary Insurance: [employer] ADV Friction Saw Operator: :Soledad Sheffield UR Note: Discharged 09/07/18 Soledad Sheffield DCP- Discharge Planning Updated by [email or web address]: Chery Escobar on 09/04/18 2:[address] Surgeon's plan as per the previous note. CM met with the patient and her spouse, Osmel, at the bedside. The patient gave permission for CM to initiate the assessment w/ her and friend at the bedside. CM explained case management and our roles. She plans to return to home. The and patient strongly decline consideration for home health or any services. The states he will take care of her. CM explained H/H SN services. They both still declined. The patient was readmitted within 6 days of her previous discharge. CM feels h/h maybe appropriate for better outcome. CM advised the patient and spouse of availability if they change their minds. PCP- DR Tidwell [facility] - [facility] in [place], [place] DME- denies any dme. CM will follow. DCPIA - Discharge Planning Initial Assessment Updated by [email or web address]: Chery Escobar on 09/04/18 3:11 pm * Is the patient Alert and Oriented? Yes * How many steps to enter\exit or inside your home? 10/27 / rail * PCP DR Tidwell- [place] * Pharmacy [facility] * Preadmission Environment Home with Family * ADLs Independent * Equipment None * Other Equipment Denies any DME * List name and contact numbers for known caregivers / representatives who currently or will assist patient after discharge: Osmel Flannery- spouse- [phone] * Verbal permission to speak to the caregivers and representatives has been obtained from the patient. Yes * Community resources currently utilized None * Please name any agencies selected above. N/A * Additional services required to return to the preadmission environment? No * Can the patient safely return to the preadmission environment? Yes * Has this patient been hospitalized within the prior 30 days at any hospital? Yes Coverage Notice Reviewer: [email or web address] Sathish Remy Notice Issued Date-Time: 09/07/2018 14:20 Notice Type: IM Discharge Notice Notice Delivered To: Patient Relationship to Patient: Self Junior Sales Assistant Name: Delivery Method: HAND - Hand Delivered Doris Days: Prior Verbal Notification: Recipient Understood Notice: Yes Recipient Signature: Yes Med Rec Note Co-signed by Attending: Coverage Notice Comment: Last DP export: 09/07/18 3:06 p Patient Name: NIKIA FLANNERY Page 53116 at 1812 All edits/amendments must be made on the electronic document DICTATION DATE: 09/07/181810 FORESTRY WORKER: LUIS MANUEL 09/07/181810 RPT#: [id number] DC DATE: STATUS: ADM IN [facility] [address] [place] [address] END OF REPORT
--- NOTE | 2018-09-08 09:42 | MORECARE ---
CASE MANAGEMENT DISCHARGE SUMMARY PATIENT: NIKIA FLANNERY UNIT: [id number] ADM DATE: 09/01/18 AGE: 68 : [birth year] SEX: F ROOM/BED: D.1210 AUTHOR: SANTINO,DOC PHYSICIAN: REFERRING PHYSICIAN: JERMAINE BEDOLLA MD DATE OF SERVICE: 09/08/18 Discharge Plan Patient Name: NIKIA FLANNERY Facility: [facility]:Louisa : 1950 Planned Disposition: Home Anticipated Discharge Date: Discharge Date: 09/07/2018 Expected LOS: Initial Reviewer: [email or web address] Initial Review Date: 08/31/2018 Generated: 09/08/18 10:42 am Comments DCP- Discharge Planning Updated by [email or web address]: Clarissa Remy on 09/07/18 5:[address] LATE ENTRY FOR 14:20 Patient Name: NIKIA FLANNERY Encounter No: [id number] : 1950 Primary Insurance: [employer] ADV Anticipated DC Date: Planned Disposition: Home External Planned Provider: : DCP follow-up note: Patient and Spouse in agreement with discharge plan. No changes to plan. CM explained and served DC IMM. Case management will follow and assist as needed. Clarissa Remy DCP- Discharge Planning Updated by [email or web address]: Soledad Sheffield on 09/07/18 3:[address] Patient Name: NIKIA FLANNERY Encounter No: [id number] : 1950 Primary Insurance: [employer] ADV Sales Technician Home Theater: :Soledad Sheffield UR Note: Discharged 09/07/18 Soledad Sheffield DCP- Discharge Planning Updated by [email or web address]: Chery Escobar on 09/04/18 2:[address] Surgeon's plan as per the previous note. CM met with the patient and her spouse, Osmel, at the bedside. The patient gave permission for CM to initiate the assessment w/ her and friend at the bedside. CM explained case management and our roles. She plans to return to home. The and patient strongly decline consideration for home health or any services. The states he will take care of her. CM explained H/H SN services. They both still declined. The patient was readmitted within 6 days of her previous discharge. CM feels h/h maybe appropriate for better outcome. CM advised the patient and spouse of availability if they change their minds. PCP- [facility] in [place], [place] DME- denies any dme. CM will follow. DCPIA - Discharge Planning Initial Assessment Updated by [email or web address]: Chery Escobar on 09/04/18 3:11 pm * Is the patient Alert and Oriented? Yes * How many steps to enter\exit or inside your home? 10/27 / rail * PCP DR [facility]- [place] * Pharmacy [facility] * Preadmission Environment Home with Family * ADLs Independent * Equipment None * Other Equipment Denies any DME * List name and contact numbers for known caregivers / representatives who currently or will assist patient after discharge: Osmel Flannery- spouse- [phone] * Verbal permission to speak to the caregivers and representatives has been obtained from the patient. Yes * Community resources currently utilized None * Please name any agencies selected above. N/A * Additional services required to return to the preadmission environment? No * Can the patient safely return to the preadmission environment? Yes * Has this patient been hospitalized within the prior 30 days at any hospital? Yes Coverage Notice Reviewer: [id number] - Clarissa Remy Notice Issued Date-Time: 09/07/2018 14:20 Notice Type: IM Discharge Notice Notice Delivered To: Patient Relationship to Patient: Self [employer] Name: Delivery Method: HAND - Hand Delivered Doris Days: Prior Verbal Notification: Recipient Understood Notice: Yes Recipient Signature: Yes Med Rec Note Co-signed by Attending: Coverage Notice Comment: Last DP export: 09/07/18 5:12 p Patient Name: NIKIA FLANNERY Page [id number] at 0942 All edits/amendments must be made on the electronic document DICTATION DATE: 09/08/18940 SEARCH MANAGER: LUIS MANUEL 09/08/18940 RPT#: [id number] DC DATE:09/07/18 STATUS: DIS IN [facility] [address] [place] [address] END OF REPORT
== END 2018-09-07 18:05 | disposition home or self-care (01) | DRG 811 ==
LOC: D.ER 16:08 → D.M3 18:33 → D.EDHOLD 18:33 → OBSVTIME 18:34 → D.M3 19:40
PROVIDERS: Family Medicine; Internal Medicine Hematology & Oncology; Internal Medicine Nephrology; ADMIT Surgery; ATTEND Surgery
DX: D62 Acute posthemorrhagic anemia (principal); E43 Unspecified severe protein-calorie malnutrition; K92.2 Gastrointestinal hemorrhage, unspecified; R55 Syncope and collapse; K21.9 Gastro-esophageal reflux disease without esophagitis; D50.9 Iron deficiency anemia, unspecified; F41.0 Panic disorder [episodic paroxysmal anxiety]; E83.42 Hypomagnesemia; Z68.20 Body mass index [BMI] 20.0-20.9, adult